=== PATIENT | female | born 1990 | race Caucasian/White ===

== ENCOUNTER → 2023-09-09 | Outpatient (CLI) | payer OTHER | LOC: M PLAIMG 11:17 | PROVIDERS: ATTEND Otolaryngology | DX: J32.0 Chronic maxillary sinusitis (principal) ==

== ENCOUNTER 2024-01-30 07:25 | Day surgery (SDC) | payer OTHER ==
[~2024-01-30] VITALS: Ht 170.2 cm; Wt 113.9 kg
[~2024-01-30 07:25] MED LIST: METF-838 PO; SEMA2PEN
[2024-01-30] MEDS: LR 1,000 ML IV SCH ×2 (08:44→12:48)
[2024-01-30] MEDS ORDERED: MIDAZOLAM INJ 2MG/2ML VIAL As Ordered ONE (08:52)
[2024-01-30] MEDS ORDERED: fentaNYL 100 MCG/2 ML INJECTION As Ordered ONE (08:52)
[2024-01-30] MEDS ORDERED: SUGAMMADEX SODIUM 500 MG/5 ML VIAL (BRIDION) As Ordered ONE (08:53)
[2024-01-30] MEDS ORDERED: ROCURONIUM BROMIDE 50MG/5ML VIAL As Ordered ONE (08:53)
[2024-01-30] MEDS ORDERED: ONDANSETRON 4MG 2ML VIAL As Ordered ONE (08:53)
[2024-01-30] MEDS ORDERED: LIDOCAINE 2% 100MG/5ML SDV (FOR ANES.) As Ordered ONE (08:53)
[2024-01-30] MEDS ORDERED: ACETAMINOPHEN 1000MG 100ML IV BAG As Ordered ONE (08:55)
[2024-01-30] MEDS ORDERED: propofoL 200 MG/20 ML VIAL As Ordered ONE (09:21)
[2024-01-30] MEDS: EPINEPHrine 1MG/ML INJ 30ML MD-VIAL As Ordered ONE (10:00)
[2024-01-30] MEDS ORDERED: HYDROmorphone HCL 2MG/ML 1ML VIAL As Ordered ONE (10:10)
[2024-01-30] MEDS ORDERED: PHENYLephrine 500MCG 5ML (100MCG/ML) SYRINGE As Ordered ONE (10:27)
[2024-01-30] MEDS: POVIDONE-IODINE 5% OPHTH PREP SOL 30ML As Ordered ONE (10:39)
[2024-01-30] MEDS: METHYLENE BLUE 0.5% (5MG/ML) 10 ML AMP (PROVAYBLUE) As Ordered ONE (10:40)
[2024-01-30] MEDS: LIDOCAINE W/EPINEPHRINE 1% 20ML VIAL As Ordered ONE (11:56)
[2024-01-30] MEDS ORDERED: ONDANSETRON 4MG 2ML VIAL IV PRN (12:00)
[2024-01-30] MEDS ORDERED: fentaNYL 100 MCG/2 ML INJECTION IV PRN (12:00)
[2024-01-30] MEDS: SODIUM CHLORIDE 0.9% NASAL GEL 15GM (AYR) As Ordered ONE (12:23)
[2024-01-30] MEDS: oxyCODONE 5MG TAB PO PRN (12:49)
[2024-01-30 14:00] VITALS: BP 160/95; TEMP 97.7; O2SAT 98
== END 2024-01-30 14:16 | disposition home or self-care (01) ==
LOC: M SDC 07:25
PROVIDERS: ATTEND Otolaryngology
DX: J32.9 Chronic sinusitis, unspecified (principal); E11.9 Type 2 diabetes mellitus without complications; Z79.84 Long term (current) use of oral hypoglycemic drugs
CPT/HCPCS: 31255; 31267; 81025; 88305; C2625; J0131; J0171; J1100; J1170; J2250; J2371; J2405; J3010; Q9968